=== PATIENT | male | born 1980 | race Caucasian/White ===

== ENCOUNTER 2016-07-05 09:21 | Day surgery (SDC) | payer OTHER ==
[2016-07-05] VITALS (9 sets, daily range): BP systolic 133–164; BP diastolic 65–98; PULSE 54–81; RESP 13–17; O2SAT 94–99
[~2016-07-05] VITALS: Ht 182.9 cm; Wt 95.1 kg
[~2016-07-05 09:21] MED LIST: ALBU8.5H2 INHALATION; CeFAZolin Inj 2 GM in IV Premix 1 EACH IV ONE
[2016-07-05] MEDS ORDERED: fentaNYL-PF 50 mCg/mL 2 mL Inj ONE (09:22)
[2016-07-05] MEDS ORDERED: Dexamethasone 4 mg/mL Inj ONE (09:22)
[2016-07-05] MEDS ORDERED: Ondansetron 2 mg/mL 2 mL Inj ONE (09:22)
[2016-07-05] MEDS ORDERED: Propofol 10,000 mCg/mL 20 mL Inj ONE (09:22)
--- NOTE | 2016-07-05 09:47 | PCM.HPANE ---
Patient Data Surgeon Admitting Provider: Attending Provider:Daniel Bonilla MD Primary Care Physician:Dada Other Provider:John Dinh Anesthesia Reason for Visit Right Knee Meniscal Tear Ht/WT & BMI Height (Feet): 6 Height (Inches): 0.00 Weight (Kilograms): 95.250 Body Mass Index 28.00 Allergies Coded Allergies: acetaminophen (Verified Allergy, Intermediate, NAUSEA, 07/05/16) hydrocodone (Verified Allergy, Intermediate, NAUSEA, 07/05/16) Past Anesthesia History Anesthesia History: Denies:: Abnormal Airway, Anesthesia Reactions, Difficult Intubation, Fam Anesthesia Reaction Diabetes History Hx Diabetes?: No MRSA MRSA: No Medications Hypertension Medication: No Home Meds Incl Beta Shamar: No Reported Medications Albuterol HFA (Proair HFA)8.5 Gm Hfa.aer.ad2 Puffs INHALATION Q4H PRN For Shortness of Breath #1 INHALER 06/30/16 History History of ENT Problems?: No HEENT History: Positive for:: TMJ (grinds teeth, wears nightguard) Denies:: Abnormal Airway Cataracts Difficult Intubation Dysphagia Glaucoma Hearing Problem Sinus Problem Hx of Heart Problems?: No Cardiovascular History: Denies:: AICD Abdominal Aortic Aneurism Atrial Fibrillation Coronary Artery Disease Edema Heart Murmur Hypertension Irregular Heartbeat Pacemaker Peripheral Vascular Rheumatic Fever Hx of Respiratory Problem?: Yes Respiratory History: Positive for:: Asthma (exercise induced) Use of Inhalers / NEBS Denies:: COPD Emphysema Oxygen Administration Pneumonia Tuberculosis Use of C-PAP Machine Hx Neurologic Problems?: No Neurological History: Denies:: CVA Headaches Multiple Sclerosis Parkinson's Disease Seizures Hx of GI Problems?: No Gastrointestinal History: Denies:: Cirrhosis Gall Bladder Disease Gastroesphageal Reflux Heartburn Hepatitis Hiatal Hernia Liver Disease Hx of Problems?: No Genitourinary History: Denies:: Kidney Stones Urinary Tract Infection Male Hx: Denies:: Prostate Problems Scrotal Mass Testicular Surgery Skin History: Denies:: History Skin Disorders? Pressure Ulcers Hx Musculoskeletal Problems?: Yes Musculoskeletal History: Positive for:: Musculoskeletal Trauma (right knee current admission problem, hx of acl repair rt knee 2009) Denies:: Back Injury Fibromyalgia Joint Replacement Myasthenia Gravis Osteoarthritis Rheumatoid Arthritis Hx of Psycho/Social Problems?: No Hx Surgeries?: Yes (right knee acl repair) Hx Any Other Health Problems?: Yes Other History: Denies:: Cancer Thyroid Disease History Blood Transfusions: Positive for:: Accept Blood Products? Denies:: Blood Transfusions Hx Diabetes: No Hx Alcohol Use: YesAlcoholic Drinks Per Day: 5-6 drinks weeklyHx Substance Use : No Smoking Status: Former Smoker Have You Smoked inLast 12 mo: No Stop/Bang S-Snoring: Do You Snore Loudly: No T-Tired: feel tired, fatigued: No O-Obsered: Observed not breath: No P-Blood Pressure: treated: No B- Body Mass Index > 35 kg/m2: No A- Age over 50: No N- Neck Large Circumference: No G- Gender Male: Yes HECTOR Total Score: 1 HECTOR Risk Assessment: Low Risk, <3 Yes Risk Assessment Category Category 1A: Patient has history of documented sleep apnea, and HAS NOT received any narcotic, sedative or anesthesia administration during this stay. Category 1B: Patient has history of documented sleep apnea, and HAS received any narcotic , sedative or anesthesia administration during this stay Category 2: Patient has SUSPECTED Obstructive Sleep Apnea, and HAS received any narcotic , sedative or anesthesia administration during this stay. Category 3: Patient has SUSPECTED Obstructive Sleep Apnea and HAS NOT received narcotic, sedative or anesthesia administration during this stay. Category 4: Outpatient in Procedural Areas with known sleep apnea or who screen positive for High Risk via the STOP/BANG questionnaire. Exam Exam Vital Signs Vital Signs Date Time Temp Pulse Resp B/P Pulse Ox O2 Delivery O2 Flow Rate FiO2 07/05/16 09:44 36.2 78 16 146/81 94 Room Air General Appearance: Alert, Oriented X3, Cooperative, No Acute Distress HEENT/AIRWAY: MP 1 Lungs: Clear to Auscultation, Normal Air Movement Heart: Exam Unremarkable, Regular Rate/Rhythm, No Murmurs/Rubs/Gallops Plan Impression Patient chart reviewed, patient interviewed and anesthestic plan with risks, benefits, and alternatives discussed, and informed consent obtained. ASA Physical Status: ASA1 Normal Healthy Anesthetic Plan: GA Bene/Risks/Altern/Consents: Yes HP Complete Prior to Induction: Yes Christian Shah MD Jul 05, 2016 09:47
[2016-07-05] MEDS: Lactated Ringer's 1,000 ML IV SCH ×2 (09:59→10:12)
[2016-07-05] MEDS ORDERED: Ropivacaine-PF 0.5% 30 mL Inj INJ ONE (10:35)
[2016-07-05] MEDS ORDERED: Lactated Ringer's 500 ML IV PRN (10:42)
[2016-07-05] MEDS ORDERED: Lactated Ringer's 1,000 ML IV SCH (10:42)
[2016-07-05] MEDS ORDERED: Dexamethasone 4 mg/mL Inj IVPUSH PRN (10:45)
[2016-07-05] MEDS ORDERED: MetoCLOpramide 5 mg/mL 2 mL Inj IVPUSH PRN (10:45)
[2016-07-05] MEDS ORDERED: Labetalol 5 mg/mL 4 mL Inj IV PRN (10:45)
[2016-07-05] MEDS ORDERED: fentaNYL-PF 50 mCg/mL 2 mL Inj IVPUSH PRN (10:45)
[2016-07-05] MEDS ORDERED: Phenylephrine 10,000 mCg/mL Inj IVPUSH PRN (10:45)
[2016-07-05] MEDS ORDERED: hydrALAZINE 20 mg/mL Inj IVPUSH PRN (10:45)
[2016-07-05] MEDS ORDERED: EPHEDrine Sulfate 50 mg/mL Inj IVPUSH PRN (10:45)
[2016-07-05] MEDS ORDERED: Atropine 0.4 mg/mL Inj IVPUSH PRN (10:45)
[2016-07-05] MEDS ORDERED: Ondansetron 2 mg/mL 2 mL Inj IVPUSH PRN (10:45)
[2016-07-05] MEDS ORDERED: HYDROmorphone 1 mg/mL Inj IVPUSH PRN (10:45)
[2016-07-05] MEDS ORDERED: Ketorolac 15 mg/mL Inj IVPUSH ONE (11:15)
[2016-07-05] MEDS ORDERED: oxyCODONE-Acetamin 5-325 mg Tablet PO PRN (11:15)
--- NOTE | 2016-07-05 11:20 | PCM.ORTHOP ---
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, grade 2/3 chondral malacia lateral compartment, grade 2 chondromalacia patella femoral compartment Procedure Right knee arthroscopy, partial meniscectomy, partial lateral meniscectomy, chondroplasty, partial synovectomy, microfracture medial femoral condyle lesion 1cm X 1cm Surgeon Surgeon: Daniel Bonilla MD Assistants: None Indication for Procedure Right knee meniscus tear Findings Right knee medial meniscus tear, lateral masses tear, osteochondral lesion medial femoral condyle 1 m x 1 cm, grade 3/4 chondral lesion medial compartment , grade 2/3 patellofemoral and lateral compartment, moderate synovitis Details of Procedure - right knee arthroscopy, -right knee, partial medial meniscectomy -right knee, partial lateral meniscectomy -right knee, chondroplasty -right knee, partial synovectomy - Right knee, microfracture medial femoral condyle INDICATIONS: Daniel Lehman is a 35-year-old male with a history of anterior cruciate ligament reconstruction and right knee pain. The patient has failed conservative management. X-rays show the tibiofemoral joints to be preserved with mild DJD. MRI was obtained which reveals medial meniscus tear. The patient has had persistent symptoms and is now brought to the operating room for arthroscopy. The risks, benefits, and alternatives of surgery were discussed with the patient. The risks included but were not limited to infection, bleeding, damage to vessels and nerves, loss of motion, continued pain, re-tear of the meniscus, deep venous thrombosis, and complications due to anesthesia including nerve injury, myocardial infarction, stroke, , etc. The patient stated understanding of the nature of the surgical procedure and gave written and verbal consent to proceed. PROCEDURE: The patient was brought to the operating room and placed supine on the operating room table. After the administration of general anesthesia the patient was placed in the supine position. Examination of the knee revealed no evident instability with a trace effusion. All prominences were padded with appropriately and neurovascular structures protected. The right knee was confirmed to be the appropriate site following surgical time out. The right lower extremity was examined under anesthesia. Range of motion was 0-135 degrees. There was no varus or valgus or anterior or posterior instability. The right lower extremity was then prepped and draped in the usual fashion. Sterile prep and drape was then undertaken of the knee. The knee joint was injected with 20 ccs of 1% Lidocaine, along with 3 ccs of 1 % lidocaine in the medial and lateral portal sites respectively. A standard anterolateral parapatellar stab wound was created. The knee joint was entered with a blunt- tipped obturator, followed by the 30-degree video arthroscope. An anteromedial portal was established under arthroscopic control. A routine arthroscopic survey was performed. The patellofemoral joint showed grade 2/3 chondromalacia which was debrided down to stable tissue with a shaver. The medial joint space was then entered. The articular surfaces showed grade 3/ 4 chondromalacia. A degenerative posterior horn and body medial meniscal tear was noted with a small flap. The shaver and the cutting instruments were inserted, and a debridement of the meniscus back to healthy tissue was then undertaken. The ACL and PCL were noted to be intact. The lateral joint space was then entered. The articular surfaces were intact with grade 2/3 chondromalacia. There was a degenerative tear to the lateral aspect of the lateral meniscus. A combination of the shaver and cutting instruments were then inserted and a debridement of this tissue down to stable tissue was undertaken. Moderate synovitis was noted anteriorly within the medial and lateral compartments and debrided with a shaver. A 1 cm x 1 cm medial femoral condyle lesion was noted with grade 4 chondral malacia. A combination of intramedullary used to debride the edges to a stable base. A 90 microfracture awl was used to stimulate bone marrow healing at a depth of 7 mm with multiple holes spaced adequately. The knee was irrigated with an additional 2 liters of lactated Ringer's solution. Excess fluid was drained. The portals were closed with 3-0 nylon as well as xeroform. The knee was injected with 20 mL of 0.5% ropivacaine. A dry sterile dressing was applied, followed by an JOSÉ hose, soft roll, and FIDEL bandage. The patient was awakened in the operating room and transported to the recovery room in satisfactory condition. The patient appeared to tolerate the procedure well. At the completion of surgery the patient had soft compartments , palpable pulses, and brisk capillary refill. There were no complications noted. Daniel will remain nonweightbearing for the first 2 weeks with gentle range of motion, touchdown weightbearing between weeks 3-4 and will start weightbearing as tolerated at weeks 5-6. Grafts, Implants: None Complications There were no periprocedural complications identified. Condition Stable Anesthetic Administered: GA Catheters: None Output, Estimated Blood Loss: 5 Blood Admin during surgery: No Surgical Specimen Removed: No Specimen sent to Pathology: No copies to: Daniel Bonilla MD, Christopher L MD Jul 05, 2016 11:20
--- NOTE | 2016-07-05 11:59 | PCM.ANEP1 ---
Post Anesthesia Phase 1 PACU Phase 1 Assessment Date of Service: Jul 05, 2016 Vital Signs Vital Signs Date Time Temp Pulse Resp B/P Pulse Ox O2 Delivery O2 Flow Rate FiO2 07/05/16 11:35 36.3 61 15 161/98 98 Room Air 07/05/16 11:30 60 16 164/88 99 Room Air 07/05/16 11:25 54 13 156/86 98 Room Air 07/05/16 11:20 36.5 72 17 150/75 98 Room Air 07/05/16 11:15 81 17 156/80 98 Room Air 07/05/16 11:10 78 17 147/65 98 Room Air 07/05/16 11:05 74 13 133/79 98 Room Air 07/05/16 11:03 36.4 78 13 145/69 98 Room Air 07/05/16 09:44 36.2 78 16 146/81 94 Room Air Anesthetic Administered: GA Level of Alertness: Awake, talking MELENDEZ's with Equal Strength: Yes Pain: No Nausea or Vomiting: No Oxygen Delivery: Room Air Lungs: Clear to Auscultation, Normal Air Movement Dermatome Level: Full Sensation Christian Shah MD Jul 05, 2016 11:59
--- NOTE | 2016-07-05 12:10 | PCM.ANEP2 ---
Post Anesthesia Evaluation ASA/CMS Post Anesthesia VS in Patient's Normal Range?: Yes Resp Stable; Airway Patent?: Yes CV Function & Hydration Stable: Yes Mental Status Recovered?: Yes Pain control Satisfactory?: Yes N/V Control Satisfactory?: Yes Christian Shah MD Jul 05, 2016 12:09
== END 2016-07-05 23:59 | disposition home or self-care (01) ==
LOC: SAS 09:21
PROVIDERS: ATTEND Orthopaedic Surgery
DX: M23.303 Other meniscus derangements, unspecified medial meniscus, right knee (principal); M23.321 Other meniscus derangements, posterior horn of medial meniscus, right knee; M23.361 Other meniscus derangements, other lateral meniscus, right knee; M93.861 Other specified osteochondropathies, right lower leg; M22.41 Chondromalacia patellae, right knee; M65.88 Other synovitis and tenosynovitis, other site; J45.909 Unspecified asthma, uncomplicated
CPT/HCPCS: 29879; 29880; J0690; J1100; J2250; J2405; J2795; J3010; J7120